=== PATIENT | male | born 1970 | race Caucasian/White ===

== ENCOUNTER → 2017-06-02 | Outpatient (CLI) | payer OTHER ==
[~2017-06-02] MED LIST: CAFFEINE200 MG PO; CIPRO 500MG TA500 MG PO; MOBIC 7.5MG7.5 MG PO; NEXIUM 40MG40 MG PO; NORCO 325 MG-51 TAB PO
== END ==
LOC: MHCPAIN 10:35
DX: G89.29 Other chronic pain (principal); M79.2 Neuralgia and neuritis, unspecified; R10.30 Lower abdominal pain, unspecified
CPT/HCPCS: G0463